=== PATIENT | male | born 1990 | race Caucasian/White ===

== ENCOUNTER 2017-10-09 11:39 | Emergency (ER) | payer OTHER ==
[~2017-10-09] VITALS: Ht 170.2 cm; Wt 90.7 kg
--- NOTE | 2017-10-09 13:15 | ED CARDIAC/CP/PALPITATIONS ---
History of Present Illness General Chief Complaint: Chest Pain Stated Complaint: SIB WALK IN CHEST PAIN, +ND X3 DAYS Source: patient Exam Limitations: no limitations Vital Signs & Intake/Output Vital Signs & Intake/Output Vital Signs Date Time Temp Pulse Resp B/P B/P Pulse O2 O2 Flow FiO2 Mean Ox Delivery Rate 10/09 1449 98.0 74 18 137/70 99 Room Air 10/09 1444 98 Room Air 10/09 1207 97.1 87 18 136/86 98 Room Air Room Air Allergies Coded Allergies: No Known Allergies (10/09/17) Triage Note: PT TO ED FROM WALK IN CLINIC WITH C/O PALPATIONS, CHEST PAIN AND NAUSEA. EKG DONE PRIOR TO TRIAGE. Triage Nurses Notes Reviewed? yes Onset: Gradual Duration: gone now, intermittent Quality/Severity: moderate Location: central Radiation: no radiation HPI: Patient is a 27-year-old male with a past medical history of anxiety and depression and vertigo presents emergency room with a three-day history of dizziness nausea and intermittent chest pain. he states symptoms made worse with head movements and bending over . Patient initially 3 days ago was evaluated at urgent care facility with a advised patient to improve his dietary intake due to concerns of hypertension no medications were given patient followed up with continued symptoms today and received EKG was advised presents emergency room. Patient currently is asymptomatic at rest. Denies any illicit drug use, drinks alcohol on occasion denies any history of DVT PE leg swelling hemoptysis recent travel recent surgery. Patient does smoke E cigarettes Patient has been complaining of bilateral hand paresthesia during the onset of his symptoms ([place] BETANCOURT,Shilo) Reconcile Medications Meclizine HCl 25 MG TABLET 1 TAB PO TIDPRN PRN COUGH Ondansetron HCl (Zofran) 4 MG TABLET 1 TAB PO Q6-8P PRN NAUSEA Scopolamine (Transderm-Scop) 1 MG/3 DAY PATCH.TD.3 1 MADI TOP AD PRN DIZZINESS APPLY BEHIND EAR X 3 DAYS FOR DIZZINESS (Bennie Carr DO) Past History Travel History Traveled to [place] past 21 day No Medical History Any Pertinent Medical History? 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 No (Shilo Cabrera) Review of Systems Review of Systems Constitutional: Reports: see HPI. Denies: chills, fever. EENTM: Reports: no symptoms. Respiratory: Reports: see HPI. Denies: cough, hemoptysis, short of breath. Cardiovascular: Reports: see HPI, chest pain. GI: Reports: see HPI, nausea. Denies: abdominal pain. Genitourinary: Reports: no symptoms. Musculoskeletal: Reports: no symptoms. Skin: Reports: no symptoms. Neurological/Psychological: Reports: see HPI, paresthesia. Hematologic/Endocrine: Reports: no symptoms. Immunologic/Allergic: Reports: no symptoms. All Other Systems: Reviewed and Negative (Shilo Cabrera) Physical Exam Physical Exam General Appearance: no apparent distress, alert, comfortable Head: atraumatic Eyes: Bilateral: normal appearance, PERRL, EOMI. 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 Yes CVA/TIA Diagnosis No Sepsis Present: No Sepsis Focused Exam Completed? No (Shilo Cabrera) Progress Differential Diagnosis: AMI, aortic dissection, atrial fibrillation, cholecystitis, CHF/pulm edema, costochondritis, hyperkalemia, hypovolemia, hyperthyroid, hyperventilation, intracranial hemorrhage, musculoskeletal pain, myocarditis, pancreatitis, pericarditis, pneumonia, pneumothorax, PSVT, pulmonary embolism, PUD/GERD, PVCs/PACs, respiratory failure, sepsis, unstable angina, V-fib/V-Tach, WPW syndrome Plan of Care: Orders Procedure Date/time Status Telemetry/Pig Furnace Operator 10/10 1315 Active THYROID STIMULATING HORMONE 10/10 1315 Complete TROPONIN LEVEL 10/10 1315 Complete FREE T4 10/10 1315 Complete COMPREHENSIVE METABOLIC PANEL 10/10 1315 Complete CBC WITHOUT DIFFERENTIAL 10/10 1315 Complete EKG 10/09 1141 Active Laboratory Tests 10/09/17 1347: Anion Gap 15, Estimated GFR > 60, BUN/Creatinine Ratio 13.3, Glucose 87, Calcium 10.4 H, Total Bilirubin 1.5 H, AST 45, ALT 64, Alkaline Phosphatase 104, Troponin I < 0.01, Total Protein 8.7 H, Albumin 5.0, Globulin 3.7, Albumin/ Globulin Ratio 1.4, TSH 1.680, Free T4 1.45, CBC w Diff NO MAN DIFF REQ, RBC 5.59, MCV 85.2, MCH 29.0, MCHC 34.0, RDW 12.7, MPV 9.9, Gran % 71.6, Lymphocytes % 19.1 L, Monocytes % 6.5, Eosinophils % 1.7, Basophils % 1.1, Absolute Granulocytes 7.2 H, Absolute Lymphocytes 1.9, Absolute Monocytes 0.7 H, Absolute Eosinophils 0.2, Absolute Basophils 0.1 Patient on initial examination and is resting comfortable at bedside no apparent distress and denies any symptoms. Patient has normal steady gait EKG and blood work was unremarkable patient was drinking fluids in the emergency room Patient was able to ambulate on multiple occasions and felt improvement of his symptoms Patient will receive treatment for concerns of peripheral vertigo Discussed all blood work and EKG with patient chest x-ray was unremarkable HEART score 0 Diagnostic Imaging: Viewed by Me: Radiology Read. CXR Impression: no acute abnormality, no infiltrates Initial ED EKG: normal p-waves, normal QRS complex, normal sinus rhythm, NSR 74 BPM Comments: PATIENT: NICKO GIRALDO PRESENT AGE: 27 PATIENT ACCOUNT NO: [id number] : 90 LOCATION: [facility] ORDERING PHYSICIAN: Shilo BETANCOURT SERVICE DATE: 10/09/17 EXAM TYPE: RAD - XRY-CHEST XRAY, TWO VIEWS EXAMINATION: XR CHEST CLINICAL INFORMATION: Chest pain COMPARISON: None TECHNIQUE: 2 views of the chest were obtained. FINDINGS: The lungs are clear with no focal consolidation. No evidence of pneumothorax, pulmonary edema, or pleural effusions. The cardiomediastinal silhouette is unremarkable. No acute osseous findings. IMPRESSION: No acute cardiopulmonary findings. DICTATED BY: Be Resendiz MD DATE/TIME DICTATED:10/09/171416 ADVERTISING SALES EXECUTIVE:AMANDA (Shilo Cabrera) Departure Departure Disposition: HOME OR SELF CARE Condition: Stable Clinical Impression Primary Impression: Dizziness Secondary Impressions: Chest pain Referrals: Unknown (PCP/Family) Additional Instructions: As discussed continue drinking plenty of fluids especially water for hydration and well-balanced diet, begin the prescription meclizine and scopolamine for your symptoms and the prescription of Zofran for nausea. Prescriptions are waiting at [place] [facility]. YOU will receive a phone call from [facility] practice to establish a doctor this week, if symptoms worsen return to emergency room Departure Forms: Customer Survey General Discharge Information Prescriptions: Current Visit Scripts Meclizine HCl 1 TAB PO TIDPRN PRN COUGH #21 TAB Scopolamine (Transderm-Scop) 1 MADI TOP AD PRN DIZZINESS #9 PAT APPLY BEHIND EAR X 3 DAYS FOR DIZZINESS Ondansetron HCl (Zofran) 1 TAB PO Q6-8P PRN NAUSEA #10 TAB (Shilo Cabrera) PA/ARCGIS DEVELOPER Co-Sign Statement Statement: ED Attending supervision documentation- [] I saw and evaluated the patient. I have also reviewed all the pertinent lab results and diagnostic results. I agree with the findings and the plan of care as documented in the PA's/ARCGIS DEVELOPER's documentation. [X] I have reviewed the ED Record and agree with the PA's/ARCGIS DEVELOPER's documentation. [] Additions or exceptions (if any) to the PAs/ARCGIS DEVELOPER's note and plan are summarized below: [] (Bennie Carr DO) Critical Care Note Critical Care Note Critical Care Time: non-applicable (Shilo Cabrera)
[2017-10-09 14:09] LABS: ABSOLUTE BASOPHIL COUNT 0.1 /CUMM (0.0-0.2); ABSOLUTE EOSINOPHIL COUNT 0.2 /CUMM (0.0-0.7); ABSOLUTE GRANULOCYTE CT 7.2 /CUMM (1.4-6.5); ABSOLUTE LYMPH COUNT 1.9 /CUMM (1.2-3.4); ABSOLUTE MONOCYTE COUNT 0.7 /CUMM (0.10-0.60); BASOPHIL % 1.1 % (0.0-2.0); EOSINOPHIL % 1.7 % (0-5); GRANULOCYTE % 71.6 % (42.2-75.2); HEMATOCRIT 47.6 % (42-52); MEAN CORPUSCULAR VOLUME 85.2 FL (80.0-94.0); MEAN PLATELET VOLUME 9.9 FL (7.4-10.4); PLATELET COUNT 259 /CUMM (130-400); RBC DISTRIBUTION WIDTH 12.7 % (11.5-14.5); RED BLOOD CELL CT 5.59 /CUMM (4.70-6.10); WHITE BLOOD CELL COUNT 10.1 /CUMM (4.8-10.8)
--- NOTE | 2017-10-09 14:23 | RADIOLOGY REPORT ---
EXAMINATION: XR CHEST CLINICAL INFORMATION: Chest pain COMPARISON: None TECHNIQUE: 2 views of the chest were obtained. FINDINGS: The lungs are clear with no focal consolidation. No evidence of pneumothorax, pulmonary edema, or pleural effusions. The cardiomediastinal silhouette is unremarkable. No acute osseous findings. IMPRESSION: No acute cardiopulmonary findings.
[2017-10-09] MEDS ORDERED: TRANSDERM-SCOP1 EAC1 TOP (15:36)
[2017-10-09] MEDS ORDERED: ZOFRAN4 M2 PO (15:36)
[2017-10-09] MEDS ORDERED: MECLIZINE HCL25 MG PO (15:36)
== END 2017-10-09 15:46 ==
LOC: ERH 11:39
PROVIDERS: Physician Assistant
DX: R07.9 Chest pain, unspecified (principal); R42 Dizziness and giddiness
CPT/HCPCS: 71046